=== PATIENT | male | born 1945 | race Caucasian/White ===

== ENCOUNTER 2020-09-14 13:58 | Emergency (ER) | payer OTHER ==
[~2020-09-14 13:58] MED LIST: ALPRAZOLAM0.5 MG PO; ASPIRIN CHEWABL81 MG PO; BENADRYL 25MG C25 MG PO; BENTYL 20MG TAB20 MG PO; CATAPRES 0.1MG0.1 MG PO; CIPRO250 MG PO; ENALAPRIL MALEA20 MG PO; FLOMAX 0.4 MG0.4 MG PO; FLUZONE QU60 MCG/015 IM; FOLIC ACID 1 MG1 MG PO; GLUCOTROL 10 MG10 MG PO; HUMALOG 10100 UNITS/ SC; HYDROCHLOROTHIA25 MG PO; INSULIN GLARGINE SC; LOPRESSOR100 MG PO; LORTAB 5-325 M1 EACH PO; NICOTINE PATCH1 EAC2 TOP; NORVASC 5 MG TAB5 MG PO; PLETAL 100 MG100 MG PO; PREDNISONE 20 M20 MG PO; SIMVASTATIN40 MG PO; Voltaren gel 1 % TOP; ZYLOPRIM 300 M300 MG PO
[2020-09-14 15:15] LABS: HEMOGLOBIN 16.1 gm/dl (14.0-17.5); RED BLOOD COUNT 5.3 M/UL (4.20-5.50); WHITE BLOOD COUNT 10.2 K/UL (4.5-11.0)
[2020-09-14 15:51] LABS: BUN/CREATININE RATIO 20 (0-10)
== END 2020-09-14 16:25 | disposition home or self-care (01) ==
LOC: ER1 13:58
PROVIDERS: Emergency Medicine
DX: U07.1 COVID-19 (principal)
CPT/HCPCS: 71045; 80053; 82550; 82553; 83874; 83880; 84484; 85025; 93005; 99285; U0002

== ENCOUNTER 2020-09-20 21:36 | Inpatient (IN) | payer OTHER ==
[~2020-09-20] VITALS: Ht 180.3 cm; Wt 83.9 kg
[2020-09-20 22:21] LABS: HEMOGLOBIN 16.4 gm/dl (14.0-17.5); RED BLOOD COUNT 5.4 M/UL (4.20-5.50); WHITE BLOOD COUNT 19.4 K/UL (4.5-11.0)
[2020-09-20 22:45] LABS: BUN/CREATININE RATIO 26 (0-10)
[2020-09-21 08:08] LABS: RED BLOOD COUNT 5.15 M/UL (4.20-5.50)
[2020-09-22] MEDS ORDERED: GLIPIZIDE10 MG PO (03:26)
[2020-09-22] MEDS ORDERED: ESOMEPRAZOLE MA40 MG PO (03:29)
[2020-09-22] MEDS ORDERED: FLUOXETINE HCL40 MG PO (03:30)
[2020-09-22] MEDS ORDERED: CHLORTABS4 MG PO (03:31)
[2020-09-22] MEDS ORDERED: TOUJEO MAX300 UNIT/1 SQ (03:34)
[2020-09-22] MEDS ORDERED: HUMALOG SC (03:35)
[2020-09-22] MEDS ORDERED: VITAMIN D 40400 UNIT PO (03:36)
[2020-09-22] MEDS ORDERED: VITAMIN C100 MG PO (03:37)
[2020-09-22 12:54] LABS: BUN/CREATININE RATIO 38 (0-10)
[2020-09-23] MEDS ORDERED: ALPRAZOLAM1 MG PO (14:57)
[2020-09-23] MEDS ORDERED: HYDROCODON-ACE1 EAC6 PO (14:58)
[2020-09-23] MEDS ORDERED: VITAMIN C 500500 MG PO (15:01)
[2020-09-23] MEDS ORDERED: VITAMIN D325 MCG PO (15:01)
[2020-09-23 18:47] LABS: BUN/CREATININE RATIO 38 (0-10)
[2020-09-24 05:53] LABS: HEMOGLOBIN 14.2 gm/dl (14.0-17.5); RED BLOOD COUNT 4.72 M/UL (4.20-5.50); WHITE BLOOD COUNT 15.6 K/UL (4.5-11.0)
[2020-09-24 06:10] LABS: BUN/CREATININE RATIO 45 (0-10)
[2020-09-25 05:16] LABS: HEMOGLOBIN 13.8 gm/dl (14.0-17.5); RED BLOOD COUNT 4.62 M/UL (4.20-5.50); WHITE BLOOD COUNT 13.9 K/UL (4.5-11.0)
[2020-09-25 05:36] LABS: BUN/CREATININE RATIO 40 (0-10)
[2020-09-26 06:45] LABS: HEMOGLOBIN 14.5 gm/dl (14.0-17.5); RED BLOOD COUNT 4.88 M/UL (4.20-5.50)
[2020-09-26 06:51] LABS: WHITE BLOOD COUNT 19.1 K/UL (4.5-11.0)
[2020-09-26 09:15] LABS: BUN/CREATININE RATIO 34 (0-10)
[2020-09-26] MEDS ORDERED: DEXAMETHASONE6 MG PO (11:59)
[2020-09-26] MEDS ORDERED: AZITHROMYCIN500 MG PO (11:59)
== END 2020-09-26 18:52 | disposition home health service (06) | DRG 177 ==
LOC: ER1 21:36 → CDU 09-21 00:58 → MED SURG 4 09-21 00:58
PROVIDERS: Internal Medicine; Physician Assistant; ADMIT Family Medicine
PROC: 8E0ZXY6 Isolation (ICD-10-PCS; principal; 2020-09-21)
PROC: XW033E5 Introduction of Remdesivir Anti-infective into Peripheral Vein, Percutaneous Approach, New Technology Group 5 (ICD-10-PCS; 2020-09-21)
DX: U07.1 COVID-19 (principal); J12.82 Pneumonia due to coronavirus disease 2019; J96.01 Acute respiratory failure with hypoxia; G93.41 Metabolic encephalopathy; N17.9 Acute kidney failure, unspecified; E87.2 Acidosis; N20.0 Calculus of kidney; D72.829 Elevated white blood cell count, unspecified; E11.65 Type 2 diabetes mellitus with hyperglycemia; R31.9 Hematuria, unspecified; M51.36 Other intervertebral disc degeneration, lumbar region
CPT/HCPCS: 36415; 36600; 51702; 70450; 71045; 80048; 80053; 81001; 82140; 82550; 82553; 82728; 82803; 82962; 83605; 83735; 83874; 84484; 85025; 85027; 85610; 86140; 87040; 87077; 87086; 87186; 93005; 96372; 96374; 99285; J1100; J1644; J1956; J3475; J7030

== ENCOUNTER 2020-10-03 13:21 | Inpatient (IN) | payer OTHER ==
[~2020-10-03] VITALS: Ht 177.8 cm; Wt 83.5 kg
[~2020-10-03 13:21] MED LIST changes: +ALPRAZOLAM1 MG PO; +AZITHROMYCIN500 MG PO; +CHLORTABS4 MG PO; +DEXAMETHASONE6 MG PO; +ESOMEPRAZOLE MA40 MG PO; +FLUOXETINE HCL40 MG PO; +GLIPIZIDE10 MG PO; +HUMALOG SC; +HYDROCODON-ACE1 EAC6 PO; +TOUJEO MAX300 UNIT/1 SQ; +VITAMIN C 500500 MG PO; +VITAMIN C100 MG PO; +VITAMIN D 40400 UNIT PO; +VITAMIN D325 MCG PO
[2020-10-03 15:08] LABS: HEMOGLOBIN 15.2 gm/dl (14.0-17.5); RED BLOOD COUNT 5.03 M/UL (4.20-5.50)
[2020-10-03 15:54] LABS: WHITE BLOOD COUNT 33.4 K/UL (4.5-11.0)
[2020-10-03] MEDS ORDERED: NORVASC5 MG PO (17:36)
[2020-10-04 02:58] LABS: RED BLOOD COUNT 4.7 M/UL (4.20-5.50)
[2020-10-04 03:00] LABS: WHITE BLOOD COUNT 19.7 K/UL (4.5-11.0)
[2020-10-04] MEDS ORDERED: OMNICEF 300 MG300 MG PO (17:45)
[2020-10-04] MEDS ORDERED: LOPRESSOR100 MG PO (17:45)
[2020-10-05 03:03] LABS: HEMOGLOBIN 13.4 gm/dl (14.0-17.5); RED BLOOD COUNT 4.52 M/UL (4.20-5.50); WHITE BLOOD COUNT 16.6 K/UL (4.5-11.0)
[2020-10-05] MEDS ORDERED: HYDROCODON-ACE1 EAC6 PO (09:17)
--- NOTE | 2020-10-05 10:26 | NUR ---
PATIENT ROOM AIR SATURATION IS AT 90% WHEN O2 IS REMOVED
== END 2020-10-05 14:09 | disposition home health service (06) | DRG 682 ==
LOC: ER1 13:21 → CDU 17:26 → PROG CARE 17:26
PROVIDERS: Preventive Medicine Occupational Medicine; ADMIT Family Medicine
PROC: 8E0ZXY6 Isolation (ICD-10-PCS; principal; 2020-10-03)
DX: N17.9 Acute kidney failure, unspecified (principal); U07.1 COVID-19; J12.82 Pneumonia due to coronavirus disease 2019; G93.41 Metabolic encephalopathy; N39.0 Urinary tract infection, site not specified; J98.11 Atelectasis; J44.0 Chronic obstructive pulmonary disease with (acute) lower respiratory infection; J96.11 Chronic respiratory failure with hypoxia; E86.1 Hypovolemia; F17.210 Nicotine dependence, cigarettes, uncomplicated; C80.1 Malignant (primary) neoplasm, unspecified; Z86.16 Personal history of COVID-19; E86.0 Dehydration; Z99.81 Dependence on supplemental oxygen; F03.90 Unspecified dementia, unspecified severity, without behavioral disturbance, psychotic disturbance, mood disturbance, and anxiety; I12.9 Hypertensive chronic kidney disease with stage 1 through stage 4 chronic kidney disease, or unspecified chronic kidney disease; E11.22 Type 2 diabetes mellitus with diabetic chronic kidney disease; N18.30 Chronic kidney disease, stage 3 unspecified; E78.5 Hyperlipidemia, unspecified; M19.90 Unspecified osteoarthritis, unspecified site; Z86.73 Personal history of transient ischemic attack (TIA), and cerebral infarction without residual deficits; Z83.3 Family history of diabetes mellitus; Z80.9 Family history of malignant neoplasm, unspecified; Z83.6 Family history of other diseases of the respiratory system; Z82.49 Family history of ischemic heart disease and other diseases of the circulatory system; Z84.1 Family history of disorders of kidney and ureter
CPT/HCPCS: 0240U; 36415; 36600; 70450; 71045; 80048; 80053; 81001; 82803; 82962; 83605; 83690; 83880; 85025; 85027; 85610; 85652; 85730; 86140; 87086; 94664; 94760; 96365; 96366; 96367; 96372; 96375; 96376; 99285; J0456; J0696; J1650; J2930; J7030

== ENCOUNTER 2021-09-18 19:25 | Inpatient (IN) | payer OTHER ==
[~2021-09-18] VITALS: Ht 180.3 cm; Wt 84.8 kg
[~2021-09-18 19:25] MED LIST changes: +NORVASC5 MG PO; +OMNICEF 300 MG300 MG PO; -SIMVASTATIN40 MG PO; +ZOCOR40 MG PO
[2021-09-18 20:47] LABS: HEMOGLOBIN 13.5 gm/dl (14.0-17.5); RED BLOOD COUNT 4.32 M/UL (4.20-5.50); WHITE BLOOD COUNT 13.2 K/UL (4.5-11.0)
[2021-09-18 21:45] LABS: BUN/CREATININE RATIO 19 (0-10)
[2021-09-19 04:11] LABS: HEMOGLOBIN 12.3 gm/dl (14.0-17.5); RED BLOOD COUNT 3.99 M/UL (4.20-5.50); WHITE BLOOD COUNT 13.4 K/UL (4.5-11.0)
[2021-09-19 04:35] LABS: BUN/CREATININE RATIO 19 (0-10)
[2021-09-19] MEDS ORDERED: GLIPIZIDE10 MG PO (10:57)
[2021-09-19] MEDS ORDERED: ENDOCET 10-3251 EACH PO (10:59)
[2021-09-19] MEDS ORDERED: ALLOPURINOL300 MG PO (10:59)
[2021-09-19] MEDS ORDERED: BENZONATATE200 MG PO (10:59)
[2021-09-19] MEDS ORDERED: MORPHINE SULFAT15 M2 PO (11:00)
[2021-09-20 08:31] LABS: HEMOGLOBIN 12.1 gm/dl (14.0-17.5); RED BLOOD COUNT 3.97 M/UL (4.20-5.50); WHITE BLOOD COUNT 11.2 K/UL (4.5-11.0)
[2021-09-20 08:48] LABS: BUN/CREATININE RATIO 26 (0-10)
[2021-09-22 06:22] LABS: RED BLOOD COUNT 4.28 M/UL (4.20-5.50); WHITE BLOOD COUNT 13.1 K/UL (4.5-11.0)
[2021-09-22 06:41] LABS: BUN/CREATININE RATIO 23 (0-10)
[2021-09-23 04:46] LABS: HEMOGLOBIN 13.3 gm/dl (14.0-17.5); RED BLOOD COUNT 4.37 M/UL (4.20-5.50); WHITE BLOOD COUNT 15.4 K/UL (4.5-11.0)
[2021-09-23 05:11] LABS: BUN/CREATININE RATIO 19 (0-10)
--- NOTE | 2021-09-23 09:30 | NUR ---
0845 PATIENT LEFT FLOOR TO ORDNANCE OFFICER. NO DISTRESS NOTED.
[2021-09-24 06:52] LABS: HEMOGLOBIN 12.9 gm/dl (14.0-17.5); RED BLOOD COUNT 4.28 M/UL (4.20-5.50); WHITE BLOOD COUNT 16.5 K/UL (4.5-11.0)
[2021-09-24 07:22] LABS: BUN/CREATININE RATIO 14 (0-10)
[2021-09-24] MEDS ORDERED: ALPRAZOLAM1 MG PO (15:14)
[2021-09-24] MEDS ORDERED: GLIPIZIDE10 MG PO (15:14)
[2021-09-24] MEDS ORDERED: FLU VACCINE IM (15:14)
[2021-09-24] MEDS ORDERED: MORPHINE SULFAT15 M2 PO (15:14)
[2021-09-24] MEDS ORDERED: AMOX TR-K CLV1 EAC4 PO (15:14)
[2021-09-24] MEDS ORDERED: ENDOCET 10-3251 EACH PO (15:14)
[2021-09-24] MEDS ORDERED: AMLODIPINE BESYL5 MG PO (15:14)
--- NOTE | 2021-09-24 19:01 | NUR ---
CALLED [facility]PART[facility] AND GOT A NEW NUMBER FOR AMBULANCE SERVICE [phone]. PER SARA AT [facility], THEY ARE NOT ABLE TO PICK THE PATIENT UP DUE TO THE NUMBER OF EMERGENCY PICK UPS THEY HAVE. [facility] NOTIFIED. SPOKE WITH [facility] AND THEY WILL PICK THE PATIENT UP WITHIN THE HOUR.
== END 2021-09-24 21:51 | DRG 177 ==
LOC: ER1 19:25 → CDU 09-19 00:20 → M/S 09-19 00:20
PROVIDERS: Internal Medicine; Physician Assistant; ADMIT Family Medicine
PROC: 8E0ZXY6 Isolation (ICD-10-PCS; principal; 2021-09-19)
PROC: XW033E5 Introduction of Remdesivir Anti-infective into Peripheral Vein, Percutaneous Approach, New Technology Group 5 (ICD-10-PCS; 2021-09-19)
PROC: 3E0333Z Introduction of Anti-inflammatory into Peripheral Vein, Percutaneous Approach (ICD-10-PCS; 2021-09-19)
DX: U07.1 COVID-19 (principal); J12.82 Pneumonia due to coronavirus disease 2019; J96.01 Acute respiratory failure with hypoxia; G93.41 Metabolic encephalopathy; J15.9 Unspecified bacterial pneumonia; J44.0 Chronic obstructive pulmonary disease with (acute) lower respiratory infection; Z66 Do not resuscitate; Z51.5 Encounter for palliative care; C61 Malignant neoplasm of prostate; M10.9 Gout, unspecified; E78.5 Hyperlipidemia, unspecified; F32.A Depression, unspecified; K21.9 Gastro-esophageal reflux disease without esophagitis; G89.29 Other chronic pain; N18.30 Chronic kidney disease, stage 3 unspecified; F17.210 Nicotine dependence, cigarettes, uncomplicated; E11.22 Type 2 diabetes mellitus with diabetic chronic kidney disease; I25.10 Atherosclerotic heart disease of native coronary artery without angina pectoris; M51.36 Other intervertebral disc degeneration, lumbar region; E86.0 Dehydration; I12.9 Hypertensive chronic kidney disease with stage 1 through stage 4 chronic kidney disease, or unspecified chronic kidney disease; R53.81 Other malaise; F41.8 Other specified anxiety disorders; Z90.49 Acquired absence of other specified parts of digestive tract; Z98.62 Peripheral vascular angioplasty status; Z83.3 Family history of diabetes mellitus; Z80.9 Family history of malignant neoplasm, unspecified; Z82.3 Family history of stroke; Z82.5 Family history of asthma and other chronic lower respiratory diseases; Z82.49 Family history of ischemic heart disease and other diseases of the circulatory system; Z84.1 Family history of disorders of kidney and ureter; Z79.4 Long term (current) use of insulin
CPT/HCPCS: 0240U; 36415; 36600; 70450; 71045; 80048; 80053; 82550; 82553; 82803; 82962; 83605; 83880; 84484; 85025; 85027; 87040; 93005; 94664; 94760; 96374; 96375; 97116; 97162; 97166; 97530; 97530-GP-CQ; 97535; 99285; J0248; J0360; J0696; J1100; J1335; J1650; J7030

== ENCOUNTER 2021-09-25 07:19 | Inpatient (IN) | payer OTHER ==
[~2021-09-25] VITALS: Ht 180.3 cm; Wt 83.9 kg
[~2021-09-25 07:19] MED LIST changes: +ALLOPURINOL300 MG PO; +AMLODIPINE BESYL5 MG PO; +AMOX TR-K CLV1 EAC4 PO; +BENZONATATE200 MG PO; +ENDOCET 10-3251 EACH PO; -FLOMAX 0.4 MG0.4 MG PO; +FLU VACCINE IM; +MORPHINE SULFAT15 M2 PO; -TOUJEO MAX300 UNIT/1 SQ
[2021-09-26 22:56] LABS: HEMOGLOBIN 12.5 gm/dl (14.0-17.5); RED BLOOD COUNT 4.19 M/UL (4.20-5.50); WHITE BLOOD COUNT 14.2 K/UL (4.5-11.0)
[2021-09-26 23:17] LABS: BUN/CREATININE RATIO 20 (0-10)
--- NOTE | 2021-09-27 04:28 | NUR ---
0430- Placed SCDs on patient's bilateral calf.
[2021-09-27 21:00] LABS: HEMOGLOBIN 12.7 gm/dl (14.0-17.5); RED BLOOD COUNT 4.08 M/UL (4.20-5.50)
[2021-09-27 21:05] LABS: WHITE BLOOD COUNT 19.3 K/UL (4.5-11.0)
[2021-09-27 21:14] LABS: BUN/CREATININE RATIO 19 (0-10)
[2021-09-28 05:39] LABS: RED BLOOD COUNT 3.93 M/UL (4.20-5.50); WHITE BLOOD COUNT 13.9 K/UL (4.5-11.0)
[2021-09-29 07:11] LABS: RED BLOOD COUNT 3.65 M/UL (4.20-5.50); WHITE BLOOD COUNT 12.3 K/UL (4.5-11.0)
[2021-10-01] MEDS ORDERED: ALPRAZOLAM1 MG PO (09:04)
[2021-10-01] MEDS ORDERED: ENDOCET 10-3251 EACH PO (09:04)
[2021-10-01] MEDS ORDERED: ENOXAPARIN40 MG/0.4 SC (09:04)
[2021-10-01] MEDS ORDERED: MORPHINE SULFAT15 M2 PO (09:04)
[2021-10-01] MEDS ORDERED: ASPIRIN EC81 MG PO (09:04)
--- NOTE | 2021-10-01 11:27 | NUR ---
patient report of bowel movement yesterday
--- NOTE | 2021-10-01 11:30 | NUR ---
report given silvestre admitting nurse @[id number]
== END 2021-10-01 17:38 | disposition home or self-care (01) | DRG 481 ==
LOC: M/S 09-26 20:31
PROVIDERS: Internal Medicine; Orthopaedic Surgery; ADMIT Family Medicine
PROC: 0QS706Z Reposition Left Upper Femur with Intramedullary Internal Fixation Device, Open Approach (ICD-10-PCS; principal; 2021-09-27 16:00)
DX: S72.142A Displaced intertrochanteric fracture of left femur, initial encounter for closed fracture (principal); C79.81 Secondary malignant neoplasm of breast; W19.XXXA Unspecified fall, initial encounter; E78.5 Hyperlipidemia, unspecified; M10.9 Gout, unspecified; F32.A Depression, unspecified; K21.9 Gastro-esophageal reflux disease without esophagitis; J44.9 Chronic obstructive pulmonary disease, unspecified; F17.200 Nicotine dependence, unspecified, uncomplicated; I12.9 Hypertensive chronic kidney disease with stage 1 through stage 4 chronic kidney disease, or unspecified chronic kidney disease; N18.9 Chronic kidney disease, unspecified; Z85.46 Personal history of malignant neoplasm of prostate; Z98.890 Other specified postprocedural states; Z86.16 Personal history of COVID-19; Z83.3 Family history of diabetes mellitus; Z82.3 Family history of stroke; Z80.9 Family history of malignant neoplasm, unspecified; F03.90 Unspecified dementia, unspecified severity, without behavioral disturbance, psychotic disturbance, mood disturbance, and anxiety; I48.91 Unspecified atrial fibrillation; G89.29 Other chronic pain; M54.59 Other low back pain; C61 Malignant neoplasm of prostate
CPT/HCPCS: 36415; 71045; 73502; 73552; 76000; 80048; 80053; 82962; 85025; 85610; 85730; 86850; 86870; 86900; 86901; 88341; 88342; 93005; 97110; 97110-GP-CQ; 97161; 97166; 97530; 97530-GP-CQ; C1713; J0690; J1100; J1650; J2001; J2270; J2405; J2704; J2795; J3010

== ENCOUNTER 2021-11-16 19:30 | Inpatient (IN) | payer OTHER ==
[~2021-11-16] VITALS: Ht 180.3 cm; Wt 83.9 kg
[~2021-11-16 19:30] MED LIST changes: +ASPIRIN EC81 MG PO; +ENOXAPARIN40 MG/0.4 SC
[2021-11-16 19:56] LABS: HEMOGLOBIN 12.5 gm/dl (14.0-17.5); RED BLOOD COUNT 4.25 M/UL (4.20-5.50); WHITE BLOOD COUNT 12.1 K/UL (4.5-11.0)
[2021-11-16 20:27] LABS: BUN/CREATININE RATIO 17 (0-10)
[2021-11-17] MEDS ORDERED: FLOMAX 0.4 MG0.4 MG PO (03:12)
[2021-11-17] MEDS ORDERED: TOUJEO MAX300 UNIT/1 SQ (03:34)
[2021-11-17 10:07] LABS: HEMOGLOBIN 13.4 gm/dl (14.0-17.5); RED BLOOD COUNT 4.56 M/UL (4.20-5.50); WHITE BLOOD COUNT 15.6 K/UL (4.5-11.0)
[2021-11-17 10:38] LABS: BUN/CREATININE RATIO 17 (0-10)
[2021-11-17] MEDS ORDERED: PERCOCET 10-321 EACH PO (14:32)
[2021-11-17] MEDS ORDERED: ALPRAZOLAM1 MG PO (14:34)
[2021-11-17] MEDS ORDERED: GLIPIZIDE10 MG PO (14:36)
[2021-11-17] MEDS ORDERED: FERROUS SULFAT325 MG PO (14:41)
[2021-11-17] MEDS ORDERED: VITAMIN D325 MCG PO (14:42)
[2021-11-17] MEDS ORDERED: VITAMIN B-122500 MCG SL (14:44)
[2021-11-17] MEDS ORDERED: VITAMIN C500 M4 PO (14:45)
[2021-11-17] MEDS ORDERED: CALCIUM CARBON600 MG PO (14:45)
[2021-11-18 02:58] LABS: HEMOGLOBIN 11.5 gm/dl (14.0-17.5)
[2021-11-18 03:15] LABS: RED BLOOD COUNT 3.96 M/UL (4.20-5.50); WHITE BLOOD COUNT 10.6 K/UL (4.5-11.0)
[2021-11-20] MEDS ORDERED: MORPHINE SULFAT15 M2 PO (11:46)
[2021-11-20] MEDS ORDERED: PERCOCET 10-321 EACH PO (11:46)
[2021-11-20] MEDS ORDERED: ACETAMINOPHEN325 MG PO (11:46)
[2021-11-20] MEDS ORDERED: CEFDINIR300 MG PO (11:46)
[2021-11-20] MEDS ORDERED: ALPRAZOLAM1 MG PO (11:49)
[2021-11-20] MEDS ORDERED: INVANZ 1 GM VIAL1 GM IM (11:57)
== END 2021-11-20 14:14 | DRG 689 ==
LOC: ER1 19:30 → CDU 11-17 02:52 → MED SURG 4 11-17 02:52
PROVIDERS: Family Medicine; ADMIT Family Medicine
DX: N30.90 Cystitis, unspecified without hematuria (principal); G93.41 Metabolic encephalopathy; J96.11 Chronic respiratory failure with hypoxia; E44.0 Moderate protein-calorie malnutrition; C79.89 Secondary malignant neoplasm of other specified sites; C79.51 Secondary malignant neoplasm of bone; Z20.822 Contact with and (suspected) exposure to COVID-19; I10 Essential (primary) hypertension; I73.9 Peripheral vascular disease, unspecified; E78.5 Hyperlipidemia, unspecified; M10.9 Gout, unspecified; F17.200 Nicotine dependence, unspecified, uncomplicated; I25.10 Atherosclerotic heart disease of native coronary artery without angina pectoris; I48.91 Unspecified atrial fibrillation; F32.A Depression, unspecified; N40.1 Benign prostatic hyperplasia with lower urinary tract symptoms; F41.9 Anxiety disorder, unspecified; I44.7 Left bundle-branch block, unspecified; G89.29 Other chronic pain; J44.9 Chronic obstructive pulmonary disease, unspecified; B96.20 Unspecified Escherichia coli [E. coli] as the cause of diseases classified elsewhere; F03.90 Unspecified dementia, unspecified severity, without behavioral disturbance, psychotic disturbance, mood disturbance, and anxiety; E11.65 Type 2 diabetes mellitus with hyperglycemia; M51.36 Other intervertebral disc degeneration, lumbar region; K21.9 Gastro-esophageal reflux disease without esophagitis; Z79.899 Other long term (current) drug therapy; Z98.890 Other specified postprocedural states; Z95.828 Presence of other vascular implants and grafts; Z83.3 Family history of diabetes mellitus; Z80.8 Family history of malignant neoplasm of other organs or systems; Z86.16 Personal history of COVID-19; Z86.73 Personal history of transient ischemic attack (TIA), and cerebral infarction without residual deficits; Z79.4 Long term (current) use of insulin; Z68.25 Body mass index [BMI] 25.0-25.9, adult
CPT/HCPCS: 36415; 36600; 51701; 71045; 80048; 80053; 81001; 82140; 82550; 82553; 82607; 82746; 82803; 82962; 83036; 83605; 83735; 83880; 84100; 84439; 84443; 84484; 85025; 85027; 86140; 87077; 87086; 87186; 96374; 99285; J0696; J1335; J1650; U0002

== ENCOUNTER → 2021-12-28 | Outpatient (CLI) | payer OTHER ==
[~2021-12-28] MED LIST changes: +ACETAMINOPHEN325 MG PO; +CALCIUM CARBON600 MG PO; +CEFDINIR300 MG PO; +FERROUS SULFAT325 MG PO; +FLOMAX 0.4 MG0.4 MG PO; +INVANZ 1 GM VIAL1 GM IM; +PERCOCET 10-321 EACH PO; +TOUJEO MAX300 UNIT/1 SQ; +VITAMIN B-122500 MCG SL; +VITAMIN C500 M4 PO
== END ==
LOC: LAB 03:49
DX: N39.0 Urinary tract infection, site not specified (principal)
CPT/HCPCS: 81001; 87077; 87086; 87186